=== PATIENT | male | born 1980 | race African-American/Black ===

== ENCOUNTER 2016-06-02 23:10 | Emergency (ER) ==
[2016-06-02] MEDS ORDERED: PHENERGAN IV ONE (23:52)
[2016-06-02] MEDS ORDERED: SODIUM CHLORIDE 0.9% INJ ONE (23:52)
[2016-06-02] MEDS ORDERED: DILAUDID IV ONE (23:52)
--- NOTE | 2016-06-03 00:37 | PROVIDER DOCUMENTATION ---
HPI-Musculoskeletal Pain/Inj - GENERAL Source: patient - HX OF PRESENT ILLNESS-MUSKULOSKELTAL Quality of Pain: reports: aching Severity in ED: moderate, severe Onset/Duration: this evening Timing: still present Any recent injury?: No Locality of Occurance: Home Similar Symptoms Previously?: Yes - UPPER EXTREMITY PAIN/INJURY Extremities Pain Location: shoulder: right Context / Method of Injury: reports: other (dislocation) <Ruba Gould - Last Filed: 06/03/16 00:33> <Taras Tirvedi - Last Filed: 06/03/16 02:00> - GENERAL Chief Complaint: Shoulder Injury Stated Complaint: RT SHOULDER DISLOCATED Time Seen by Provider: 06/02/16 23:24 - HX OF PRESENT ILLNESS-MUSKULOSKELTAL Nature of Presenting Problem: 35 Y/O M presents to ED with extremity pain. Pt states that he was at home this evening when he dislocated his rt shoulder , states he was reaching for his phone and the shoulder just came out. Pt has a reoccurring hx of shoulder dislocation. (Ruba Gould) Review of Systems - Adult - REVIEW OF SYSTEMS - ADULT Constitutional: denies: chills, fever Eyes: reports: no symptoms reported Ears, Nose, Mouth & Throat: reports: no symptoms reported Cardiovascular: reports: no symptoms reported Respiratory: reports: no symptoms reported Gastrointestinal: reports: no symptoms reported Genitourinary: reports: no symptoms reported Musculoskeletal: reports: muscle aches, other (shoulder dislocation) Integumentary: reports: no symptoms reported Neurological: reports: no symptoms reported Psychiatric: reports: no symptoms reported Endocrine: reports: no symptoms reported Hematologic/Lymphatic: reports: no symptoms reported Allergic/Immunologic: reports: no symptoms reported All Other Systems: Reviewed and Negative <Ruba Gould - Last Filed: 06/03/16 00:33> Past History - Adult - PAST MEDICAL HISTORY-ADULT Review of Records: reports: Old Records Reviewed, Nursing Assessment Review, Medications Reviewed, Social history reviewed & non-contributory. Major Childhood Illnesses: reports: denies history Cardiovascular: reports: CHF, HTN (non compliant) Respiratory: reports: asthma Musculoskeletal: reports: other (multiple shoulder dislocations) Additional History: multiple visits to the ER for HTN and Shoulder Dislocations - PRIOR SURGERIES/PROCEDURES Surgical/Procedure History: reports: orthopedic (extremity) - IMMUNIZATION STATUS Childhood Immunizations: See Nurse Assessment Flu Vaccine: See Nurse Assessment - FAMILY HISTORY Family History: reviewed, not pertinent - SOCIAL HISTORY Smoking: cigarettes, less than 1 pack/day Living Situation: family <BryannaRuba - Last Filed: 06/03/16 00:33> Physical Exam-Injury Related - Physical Exam-Injury Related Initial Vital Signs Reviewed: Yes General Appearance: appears well, alert, no apparent distress Eyes: PERRL/EOMI, pink conjunctivae, fundi clear, no AV nicking Head, Ears, Nose, Mouth & Throat: normocephalic/atraumatic, moist mucous membranes, TMs normal, pharynx normal, dental decay Neck: non-tender, full range of motion, supple, normal inspection Respiratory: chest non-tender, lungs clear, normal breath sounds Cardiovascular: normal peripheral pulses, regular rate, rhythm Abdominal Exam: normal bowel sounds, non tender, soft Lymphatic: no adenopathy Back Exam: normal inspection, no CVA tenderness, no vertebral tenderness Extremity: other (rt shoulder dislocation) Integumentary: normal color, warm/dry, blanching Neurologic: phlebotomy program coordinator II-XII nml as tested Psych/Mental Status: normal mood/affect, normal thought content, normal thought process, oriented x 3 - Gl[place]ow Coma Score Best Eye Response ([place]): (4) open spontaneously Best Verbal Response ([place]): (5) oriented Best Motor Response ([place]): (6) obeys commands [place] Total: 15 <Ruba Gould - Last Filed: 06/03/16 00:33> Progress - REASSESSMENT Reassessment #1 Time Reassessed: 01:11 (Pt shoulder spontaneously reduced. Pt now has full ROM to his shoulder. ) Reassessment #2 Time Reassessed: 01:59 (Gojimo states there has been a computer error that has deleted the post reduction shoulder x-ray. I re-ordered the x-ray.) - XRAY 1 XRAY: Right XRAY Study: Shoulder Impression: Abnormal (anterior dislocation) <Taras Trivedi - Last Filed: 06/03/16 02:00> Departure <Ruba Gould - Last Filed: 06/03/16 00:33> - Departure Time of Disposition Order: 01:12 Certified Medical Emergency: Emergent <Taras Trivedi - Last Filed: 06/03/16 02:00> - Departure DIAGNOSIS: Shoulder dislocation, recurrent Qualifiers: Laterality: right Qualified Code(s): M24.411 - Recurrent dislocation, right shoulder Disposition: HOME 01 Condition: Stable Additional Instructions: ED Follow Up Instructions: You have been treated by a care provider in the Emergency Department. These instructions are being provided to you so you can have an understanding of how to care for yourself upon discharge. Upon discharge from the Emergency Department, you are responsible for making arrangements for follow-up care by a physician of your choice. Take all prescribed medications as directed. Return to the Emergency Department immediately for any new or worsening symptoms. You may call the Physician Referral phone number at [phone] to obtain a list of Physicians who are taking new patients. Prescriptions: Ibuprofen [Motrin] 800 mg PO Q8H PRN PRN #20 tablet PRN Reason: inflammation Omeprazole [Prilosec] 20 mg PO DAILY@0700 #20 capsule Tramadol [Ultram] 50 mg PO Q8HR #10 tablet Referrals: Jimenez Ann MD [STAFF PHYSICIAN] - Instructions: Shoulder Dislocation, Aauo-up-Edrx Attestation - Scribe Verification/Attestation Scribe:: Ruba Gould Acting as Scribe for:: John Braun Scribe documention review:: This chart was documented by a scribe and accurately reflects the service the provider performed and the decisions made by the provider. - Physician/ GARO Attestation Patient care was provided by Advanced Practice Provider:: Yes Advanced Practice Provider:: Taras Trivedi Advanced Practice Provider documentation review:: The Mid-level provider documentation, treatment plan and medical decision making was reviewed by the physician who agrees with all treatment and medical decision making by the MLP. <Ruba Gould - Last Filed: 06/03/16 00:33> - Physician/ GARO Attestation Patient care was provided by Advanced Practice Provider:: Yes Advanced Practice Provider:: Taras Trivedi Advanced Practice Provider documentation review:: The Mid-level provider documentation, treatment plan and medical decision making was reviewed by the physician who agrees with all treatment and medical decision making by the MLP. <Taras Trivedi - Last Filed: 06/03/16 02:00> Physician Attestation
[2016-06-03 01:35] VITALS: BP 153/108
--- NOTE | 2016-06-03 09:20 | Diag Imaging Result Document ---
PROCEDURE NAME: TRAUMA SHOULDER RIGHT - 06/02/2016 PLAIN RADIOGRAPH OF THE RIGHT SHOULDER, 2 VIEWS: COMPARISON: 05/12/2016. FINDINGS: There is an anterior dislocation of the right humeral head. No definite fracture can be identified on this study. Surrounding soft tissues are grossly unremarkable. The AC joint is unremarkable. IMPRESSION: Anterior shoulder dislocation.
--- NOTE | 2016-06-03 09:22 | Diag Imaging Result Document ---
PROCEDURE NAME: SHOULDER 1 VIEW RIGHT - 06/03/2016 SINGLE AP RADIOGRAPH OF THE RIGHT SHOULDER: COMPARISON: 06/03/2016. FINDINGS: The right humeral head is now in anatomic position status post reduction. No discrete fracture can be identified. IMPRESSION: Interval reduction of the dislocated right shoulder, which is now in anatomic position.
== END 2016-06-03 02:12 | disposition home or self-care (01) ==
LOC: ED 23:10
DX: M24.411 Recurrent dislocation, right shoulder (principal); M25.511 Pain in right shoulder; M79.1 Myalgia; I50.9 Heart failure, unspecified; I10 Essential (primary) hypertension; F17.210 Nicotine dependence, cigarettes, uncomplicated; Z79.899 Other long term (current) drug therapy
CPT/HCPCS: J1170; J2550

== ENCOUNTER 2019-02-28 09:32 | Inpatient (IN) ==
[2019-02-28 10:28] LABS: BASO# 0.02 X1000 (0.0-0.2); BASO% 0.3 % (0.0-0.8); EOS# 0.02 X1000 (0.0-0.7); EOS% 0.3 % (0.0-10.0); HEMATOCRIT 36.5 % (42.0-52.0); HEMOGLOBIN 11.5 g/dL (14.0-18.0); IMM GRAN# 0.01 X1000 (0.0-0.04); IMM GRAN% 0.1 % (0.0-0.5); LYMPH% 25.2 % (20.5-51.1); MCH 26.4 PG (27-31); MCHC 31.5 g/dL (33-37); MCV 83.9 FL (81-99); MONO% 7.5 % (1.7-9.3); MPV 10.1 FL (7.4-10.4); NEUT% 66.6 % (42.2-75.2); PLT 331 X1000 (130-400); RBC 4.35 XMIL (4.7-6.1); RDW 15.2 % (11.5-14.5); WBC 7.95 X1000 (4.8-10.8)
[2019-02-28 10:47] LABS: PROTIME 13.7 Seconds (11.0-16.0)
[2019-02-28 10:48] LABS: PTT 26.8 Seconds (22.3-41.8)
[2019-02-28] MEDS: LASIX IV SCH ×2 (11:08→22:25)
[2019-02-28 11:18] LABS: ALBUMIN 4.3 g/dL (3.5-5.0); ALKALINE PHOSPHATASE 108 U/L (32-122); BUN 15 mg/dL (8-22); CALCIUM 9.1 mg/dL (8.8-10.2); CHLORIDE 104 mmol/L (98-107); COSMO 287; CREATININE 1.2 mg/dL (0.7-1.2); ESTIMATED GFR > 60; GLUCOSE 111 mg/dL (70-104); GOT 23 U/L (10-34); GPT 11 U/L (10-44); POTASSIUM 4.1 mmol/L (3.5-5.1); SODIUM 143 mmol/L (136-145)
--- NOTE | 2019-02-28 11:18 | PROVIDER DOCUMENTATION ---
This chart was entered by Taylor Velázquez Scribe, acting as scribe for John Sampson MD. HPI-Respiratory General - General Chief Complaint: Shortness of Breath Stated Complaint: SOB Time Seen by Provider: 02/28/19 09:52 Source: patient Allergies/Adverse Reactions: Patient Allergies Allergy/AdvReac Type Severity Reaction Status Date / Time hydrocodone AdvReac NAUSEA/VOMI Verified 02/28/19 10:31 TING lactase [From Dairy Aid] AdvReac NAUSEA/VOMI Verified 02/28/19 10:31 TING lactose AdvReac NAUSEA/VOMI Verified 02/28/19 10:31 TING Home Medications: Home Medication List Medication Instructions Recorded Confirmed Last Taken Type Lisinopril/Hydrochlorothiazide 1 each PO DAILY 04/29/15 02/28/19 02/27/19 History [Lisinopril-Hctz 20-12.5 mg Tab] Furosemide [Lasix] 40 mg PO DAILY 05/12/16 02/28/19 02/27/19 History Losartan Potassium 100 mg PO DAILY #30 tablet 08/05/16 02/28/19 02/27/19 Rx Albuterol [Albuterol Neb] 2.5 mg INH PRN PRN 10/12/17 02/28/19 02/27/19 History Metoprolol Succinate 50 mg PO BID 10/12/17 02/28/19 02/27/19 History Pantoprazole Sodium 40 mg PO DAILY 10/12/17 02/28/19 02/27/19 History Potassium Chloride 20 meq PO DAILY 10/12/17 02/28/19 02/27/19 History Spironolactone 25 mg PO DAILY 10/12/17 02/28/19 02/27/19 History Metformin [Glucophage] 1 tab PO DAILY 10/16/17 02/28/19 02/27/19 History Citalopram Hydrobromide 1 tab PO DAILY 09/27/18 02/28/19 02/27/19 History [Citalopram HBr] Sacubitril/Valsartan [Entresto 24 1 tab PO BID 09/27/18 02/28/19 02/27/19 History mg-26 mg Tablet] - History of Present Illness-Resp Nature of Presenting Problem: Patient is a 38 year old male who presents with shortness of breath. History of CHF. Patient left AMA this morning from ED. Denies chest pain. Quality of Pain: reports: none Severity in ED: reports: mild Onset/Duration: reports: gradual Timing: reports: still present Cough Quality/Degree: reports: no cough Current Respiratory Medication Therapy: Initiated see nurses note Modifying Factors: improves with: nothing Associated Symptoms: reports: shortness of breath Similar Symptoms Previously?: Yes Recently seen or treated by another doctor?: Yes Review of Systems - Adult - REVIEW OF SYSTEMS - ADULT Constitutional: reports: no symptoms reported Eyes: reports: no symptoms reported Ears, Nose, Mouth & Throat: reports: no symptoms reported Cardiovascular: reports: no symptoms reported. denies: chest pain, irregular heart rate, palpitations Respiratory: reports: see HPI, shortness of breath. denies: cough, wheezing Gastrointestinal: reports: abdominal pain (generalized), constipation. denies: nausea, vomiting Genitourinary: reports: no symptoms reported Musculoskeletal: reports: no symptoms reported Integumentary: reports: no symptoms reported Neurological: reports: no symptoms reported Psychiatric: reports: no symptoms reported Endocrine: reports: no symptoms reported Hematologic/Lymphatic: reports: no symptoms reported Allergic/Immunologic: reports: no symptoms reported All Other Systems: Reviewed and Negative Past History - Adult - PAST MEDICAL HISTORY-ADULT Review of Records: reports: Old Records Reviewed, Nursing Assessment Review, Medications Reviewed, Social history reviewed & non-contributory. Major Childhood Illnesses: reports: denies history Cardiovascular: reports: CHF, HTN (non compliant), pacemaker Respiratory: reports: asthma Gastrointestinal: reports: denies history Obstetrical/Gynecological: reports: denies history Genitourinary: reports: denies history Musculoskeletal: reports: other (multiple shoulder dislocations) Neurological: reports: denies history Endocrine/Immune: reports: Diabetes Other Conditions: reports: denies history Additional History: multiple visits to the ER for HTN and Shoulder Dislocations - PRIOR SURGERIES/PROCEDURES Surgical/Procedure History: reports: orthopedic (extremity) - IMMUNIZATION STATUS Childhood Immunizations: See Nurse Assessment Flu Vaccine: See Nurse Assessment - FAMILY HISTORY Family History: reviewed, not pertinent - SOCIAL HISTORY Smoking: cigarettes (former) Substance Use: denies Physical Exam-General - PHYSICAL EXAM-ADULT Initial Vital Signs Reviewed: Yes - CONSTITUTIONAL General Appearance: alert, no apparent distress. negative: lethargic - HEAD, EARS, NOSE, MOUTH & THROAT HENMT: normocephalic/atraumatic, moist mucous membranes. negative: angioedema - RESPIRATORY Respiratory: chest non-tender, rales (bilateral). negative: crackles - CARDIOVASCULAR Cardiovascular: normal peripheral pulses, regular rate, rhythm, other (surgical wound to left anterior chest wall.). negative: tachycardia - GASTROINTESTINAL (ABDOMEN) Abdominal Exam: normal bowel sounds, non tender, soft. negative: guarding - MUSCULOSKELETAL Extremity: normal inspection. negative: deformity, erythema - SKIN Integumentary: normal color, normal turgor, warm/dry, other (surgical wound to left anterior chest wall.). negative: diaphoresis - NEUROLOGIC Neurologic: grossly normal. negative: aphasia, facial droop - PSYCHIATRIC Psych/Mental Status: normal mood/affect, oriented x 3. negative: anxious - HEART Score HEART Score: History: Slightly Suspicious HEART Score: ECG: Non-Specific Repolarization Disturbance/LBBB/PM HEART Score: Age: < or = 45 Years HEART Score: Risk Factors for Atherosclerotic Disease: 1 or 2 Risk Factors HEART Score: Troponin: < or = Normal Limit Total HEART Score:: 2 Progress - PLAN OF CARE/RESULTS Progress/Plan/Lab Results: Vital Signs - 8 hr 02/28/19 09:36 02/28/19 09:44 Temperature 97.5 F L 98.2 F Pulse Rate 104 H 105 H Respiratory Rate 20 32 H Blood Pressure 148/116 167/136 O2 Sat by Pulse Oximetry 97 95 Laboratory Results - last 24 hr 02/28/19 02/28/19 02/28/19 10:11 10:11 10:11 WBC 7.95 RBC 4.35 L Hgb 11.5 L Hct 36.5 L MCV 83.9 MCH 26.4 L MCHC 31.5 L RDW Std Deviation 15.2 H Plt Count 331 MPV 10.1 Immature Gran % (Auto) 0.1 Neut % (Auto) 66.6 Lymph % (Auto) 25.2 [place] % (Auto) 7.5 Eos % (Auto) 0.3 Baso % (Auto) 0.3 Immature Gran # (Auto) 0.01 Neut # (Auto) 5.30 Lymph # (Auto) 2.00 [place] # (Auto) 0.60 H Eos # (Auto) 0.02 Baso # (Auto) 0.02 PT 13.7 INR 1.00 PTT (Actin FS) 26.8 Troponin T < 0.010 Orders Category Date Time Status Admit - [facility] Routine AdmDCTranf 02/28/19 10:52 Active Cardiac Monitoring DIRECTED Care 02/28/19 09:44 Active Nursing- MD Consult Request ROUTINE Care 02/28/19 10:52 Active Oxygen Therapy- ED Nursing DIRECTED Care 02/28/19 09:44 Active Saline Loc NOW Care 02/28/19 09:44 Active Physician/Provider Consults Routine Cons 02/28/19 10:52 Ordered CBC WITH ELECTRONIC DIFF [HEME] Stat Lab 02/28/19 10:11 Completed CK PROFILE [SP CHEM] Stat Lab 02/28/19 10:11 Received COMPREHENSIVE METABOLIC PANEL [CHEM] Stat Lab 02/28/19 10:11 Received PRO B-NATRIURETIC PEPTIDE Stat Lab 02/28/19 10:11 Received PROTIME WITH INR [COAG] Stat Lab 02/28/19 10:11 Completed PTT [COAG] Stat Lab 02/28/19 10:11 Completed RENAL PROFILE [CHEM] DAILY Lab 03/01/19 06:00 Ordered RENAL PROFILE [CHEM] DAILY Lab 03/02/19 06:00 Ordered RENAL PROFILE [CHEM] DAILY Lab 03/03/19 06:00 Ordered TROPONIN T Stat Lab 02/28/19 10:11 Completed URINE DRUG SCREEN PL Stat Lab 02/28/19 10:50 Received Furosemide [Lasix] Med 02/28/19 11:00 Active 40 mg IV Q12H CP/SOB/Palp >45 yrs of Age Stat Oth 02/28/19 09:44 Ordered EKG [EKG] Stat Ther 02/28/19 09:44 Ordered Echo Spec/Color Doppler Routine Ther 02/28/19 10:52 Ordered Transfer/Admit Order [TRANSFER] Routine Transfer 02/28/19 10:50 Ordered Result Diagrams: 02/28/19 10:11 - EKG 1 Time of EKG reading by physician:: 10:26 EKG Read and Signed by:: John Sampson EKG Interpretation (*Must complete 3 of following elements*): Abnormal Rate: 103 Rhythm: sinus tachycardia with premature atrial complexes Arnett: left QRS: LVH (with QRS widening and repolarization abnormality.) CT Interval: normal Comments: possible left atrial enlargement - CONSULTS/PCP/HOSPITALIST Notification #1 *Consult/PCP/Hospitalist*: Dr. Arroyo Time Discussed: 10:54 Reason/Comments: Dr. Sampson consulted with Dr. Arroyo about patient. Consult Disposition: Will see in ED, Admit Departure - Departure Date of Disposition Decision: 02/28/19 Time of Disposition Decision: 10:54 DIAGNOSIS: SOB (shortness of breath), Abdominal pain Congestive heart failure (CHF) Qualifiers: Heart failure type: unspecified Heart failure chronicity: chronic Qualified Code(s): I50.9 - Heart failure, unspecified Constipation Qualifiers: Constipation type: drug induced constipation Qualified Code(s): K59.03 - Drug induced constipation Disposition: ADMITTED INPATIENT 09 Certified Medical Emergency: Emergent Condition: Stable Referrals and Follow-Ups: Wanda Chopra CRNP [Primary Care Provider] - - Critical Care Note This patient required my direct & personal management of CC.: No Attestation - Physician/ GARO Attestation The physician spent face to face time with patient:: Yes Advanced Practice Provider documentation review:: Supervising physician onsite and consulted in the evaluation and care of this patient. The physician did have a face to face encounter with the patient. This chart was documented by the indicated scribe, (Taylor Velázquez Scribe) and accurately reflects the services I performed and decisions made by me, John Sampson MD, as attested by the provider's signature.
[2019-02-28 11:21] LABS: AGAP 16
[2019-02-28 11:22] LABS: TOTAL PROTEIN 7.1 g/dL (6.3-8.3)
[2019-02-28 11:35] LABS: CK PROFILE 144 U/L (24-204); TCO2 21 mmol/L (25-35)
[2019-02-28 11:38] LABS: UR AMPHETAMINES QUAL NONE DETECTED (NONE DETECT); UR BARBITUATES QUAL NONE DETECTED (NONE DETECT); UR BENZODIAZEPIN QUAL NONE DETECTED (NONE DETECT); UR CANNABINOIDS QUAL PRESUMPTIVE POSITIVE (NONE DETECT); UR COCAINE QUAL NONE DETECTED (NONE DETECT); UR METHADONE QUAL NONE DETECTED (NONE DETECT); UR METHAMPHETAMINE QUAL NONE DETECTED (NONE DETECT); UR OPIATES QUAL NONE DETECTED (NONE DETECT); UR OXYCODONE QUAL NONE DETECTED (NONE DETECT); UR PCP QUAL NONE DETECTED (NONE DETECT); UR PROPOXYPHENE QUAL NONE DETECTED (NONE DETECT); UR TCA QUAL NONE DETECTED (NONE DETECT)
[2019-02-28] MEDS ORDERED: TYLENOL PO PRN (12:33)
[2019-02-28] MEDS ORDERED: ZOFRAN IV PRN (12:33)
[2019-02-28] MEDS ORDERED: BUDESONIDE INH PRN (13:32)
[2019-02-28] MEDS ORDERED: PERCOCET-5 PO PRN (13:32)
[2019-02-28] MEDS ORDERED: SORBITOL PO ONE (14:20)
[2019-02-28] MEDS ORDERED: DULCOLAX PR ONE (14:20)
[2019-02-28] MEDS ORDERED: PNEUMOVAX 23 IM ONE (14:53)
[2019-02-28] MEDS: ALBUTEROL NEB INH PRN ×2 (15:40→20:28)
[2019-02-28] MEDS: HUMULIN R (PARKWAY) SUBQ SCH (16:47)
--- NOTE | 2019-02-28 17:36 | EKG Report ---
Test Performed on : 02/28/2019 10:26:48 AM Test Reason : sob Blood Pressure : / mmHG Vent. Rate : 103 BPM Atrial Rate : 103 BPM P-R Int : 180 ms QRS Dur : 118 ms QT Int : 388 ms P-R-T Axes : 052 -47 104 degrees QTc Int : 508 ms Sinus tachycardia. with premature atrial complexes. Possible Left atrial enlargement Left axis deviation Left ventricular hypertrophy with QRS widening and repolarization abnormality Abnormal ECG When compared with ECG of 28-FEB-2019 01:45, (Unconfirmed) premature ventricular complexes. are no longer present premature atrial complexes. are now present Unconfirmed Result
--- NOTE | 2019-02-28 18:36 | ECHO REPORT ---
ORDER DATE: 02/28/2019 INDICATION: CHF exacerbation. REQUESTING PHYSICIAN: Hospitalist. M-MODE MEASUREMENTS: Left ventricle end diastole: 6.8. Left ventricle end systole: 6.3. Posterior wall: 1.5. Interventricular septum: 1.5. Left atrium: 4.7. Aortic diameter: 2.6. SUMMARY OF 2-DIMENSIONAL IMAGIN. The left ventricular chamber is markedly dilated. Global systolic function is severely impaired, estimated to be in the range of 20% to 25% by computer tracing. 2. The left atrium is markedly dilated. 3. The mitral valve shows a moderately severe to severe degree of regurgitation. 4. Pulsed wave Doppler of mitral inflow shows fusion of the E and A waves. Diastolic function cannot be evaluated. Left atrial pressure is probably markedly elevated. 5. The tricuspid valve shows a mild to moderate degree of regurgitation. The inferior vena cava is enlarged. Pulmonary pressure is estimated at 76 mmHg. The right atrium and right ventricle appear to be mildly to moderately enlarged. 6. The aortic valve has 3 cusps. Color flow mapping unremarkable. 7. The pulmonic valve looks grossly unremarkable. 8. There is no pericardial effusion, no mass, and no thrombus. Clinical correlation recommended. cc: MD Brad Hernandez MD
--- NOTE | 2019-02-28 21:15 | HISTORY AND PHYSICAL ---
CHIEF COMPLAINT: Abdominal pain with constipation, and shortness of breath with fluid weight gain. HISTORY OF PRESENT ILLNESS: Mr. Harry Joshi is a 38-year-old male. He states for at least a week he has been having increased shortness of breath, fluid buildup in his lungs and constipation. He claims he has not had a bowel movement in a week. Of note, around a week ago or sometime last week Dr. Cesar in [place] put a defibrillator in. Also history of diabetes and hypertension. He did originally come in through the night or earlier this morning but left AMA and came back. Because of that a urine drug screen was performed. The only thing that was positive was cannabinoids, but he admits to smoking marijuana twice a day. We will admit him, treat him for his congestive heart failure and his constipation. He did state that he was having some chest pain with it. It did not really radiate except for maybe to his stomach. He would get a little sweaty and nauseated, and he complained of some muscle pain in the back of his calf, but there is no swelling. PAST MEDICAL HISTORY: 1. Diabetes mellitus type 2. 2. Systolic congestive heart failure. 3. Hypertension. 4. Constipation. 5. Chronic pain. PAST SURGICAL HISTORY: Defibrillator put in last week, in [place]. SOCIAL HISTORY: He states he quit smoking 2 months ago, but prior to that he smoked less than a half pack per day since the age of 16. He denies alcohol. He smokes marijuana twice a day. He is on disability. His girlfriend is at the bedside. FAMILY HISTORY: Mother from an unknown cancer, and his father from heart attack in his 50s. ALLERGIES: Hydrocodone, lactase and lactose. HOME MEDICATIONS: 1. Albuterol nebulizers. 2. Amlodipine 5 mg p.o. daily. 3. Citalopram 40 mg p.o. daily. 4. Entresto one tablet p.o. twice daily. 5. Metformin 500 mg p.o. daily. 6. Lasix 40 mg p.o. daily. 7. Hydrochlorothiazide/lisinopril 1 tablet p.o. daily. 8. Metoprolol 50 mg p.o. twice daily. 9. Montelukast 10 mg p.o. daily. 10. Percocet 1 tablet p.o. every 6 hours p.r.n. 11. Protonix 40 mg p.o. daily. 12. Potassium chloride 20 mEq p.o. daily. 13. Budesonide 2 puffs inhaled every 4 hours. 14. Spironolactone 25 mg p.o. daily. 15. Venlafaxine 50 mg p.o. daily. 16. Losartan potassium 100 mg p.o. daily. REVIEW OF SYSTEMS: Fourteen-point review of systems are complete and all are negative except for those mentioned in the above HPI. PHYSICAL EXAMINATION: VITAL SIGNS: Temperature 97.4 degrees, heart rate 103, respiratory rate 20, blood pressure 140/100, O2 saturation 100% on room air. GENERAL: Five feet 8 inches tall, 155 pounds. He states he weighed 161 when he came in and he usually weighs 150, and he is down to 155. Mr. Harry Joshi is a 38-year-old male in no acute distress. He is able to answer questions appropriately. HEENT: Atraumatic, normocephalic. Pupils equal, round and reactive to light. Extraocular movements intact. Mucous membranes are moist. NECK: Trachea midline. CARDIOVASCULAR: S1, S2. Regular rate and rhythm. No rubs, gallops or murmurs. There is no lower extremity edema. Dorsalis and radial pulses +2. Negative JVD or carotid bruits. PULMONARY: Clear to auscultation. Bilateral breath sounds. No accessory muscle use or work of breathing noted. GASTROINTESTINAL: Soft. He is a little tender. Nondistended. Positive bowel sounds x4. EXTREMITIES: Moves all extremities equally. Full range of motion. NEUROLOGIC: Alert and oriented x3. Follows commands. Sensory is intact. SKIN: Warm, dry, intact. LABORATORY DATA: White blood cells 7000, hemoglobin 11, hematocrit 36, platelet count 331,000. INR is 1.00, PTT is 26.8. Sodium 143, potassium 4.1, BUN 15, creatinine 1.2, glucose 111, calcium 9.1, bilirubin is 1.30, AST 23, ALT 11. CK 144, troponin less than 0.01. ProBNP 9035. Albumin 4.3. Urine drug screen positive for cannabinoids. DIAGNOSTIC DATA: He had an abdominopelvic CT: No pulmonary emboli; marked cardiomegaly with pulmonary edema and a right pleural effusion. EKG: Sinus tachycardia, PVCs, rate 107, QTc 504. ASSESSMENT AND PLAN: 1. Complaints of chest pains related to congestive heart failure. 2. [id number] systolic congestive heart failure. He is on intravenous Lasix and continued his Entresto. He apparently started out at 161 pounds. He is down to 155, and his normal weight is 150. 3. Complaints of constipation. No bowel movement for a week. He is actually requesting medication to help him have a bowel movement. He feels like it is adding to his shortness of breath, so we will do sorbitol suppository, bisacodyl suppository and Kristan- Colace twice a day. 4. Hypertension. Continue home medications. 5. Diabetes mellitus type 2. We will do pattern blood glucoses and sliding scale insulin. 6. Tobacco abuse. Cessation discussed. Dictated by DAVY Marina for Brad Hutson MD Addendum: Patient seen and examined by myself. Agree with DAVY note. It reflects my assessment and plan. Patient is being admitted to hospital for acute systolic congestive heart failure so will start him on Lasix IV, monitor BPM and check an chest X ray in 2 days. He is also constipated because he is taking Percocet. Will provide stool softeners. cc: DAVY Marina MD [facility]
[2019-02-28] MEDS: TOPROL XL PO SCH (22:24)
[2019-02-28] MEDS: PERICOLACE PO SCH (22:24)
[2019-02-28] MEDS: ENTRESTO 24 MG-26 MG TABLET PO SCH (22:24)
[2019-03-01] MEDS: HUMULIN R (PARKWAY) SUBQ SCH ×5 (06:14→23:58)
[2019-03-01 06:21] LABS: BASO# 0.02 X1000 (0.0-0.2); BASO% 0.3 % (0.0-0.8); EOS# 0.12 X1000 (0.0-0.7); EOS% 1.6 % (0.0-10.0); HEMATOCRIT 38.4 % (42.0-52.0); HEMOGLOBIN 12.3 g/dL (14.0-18.0); IMM GRAN# 0.01 X1000 (0.0-0.04); IMM GRAN% 0.1 % (0.0-0.5); LYMPH# 1.83 X1000 (1.2-3.4); LYMPH% 24.4 % (20.5-51.1); MCH 26.7 PG (27-31); MCV 83.5 FL (81-99); MONO# 0.79 X1000 (0.11-0.59); MONO% 10.5 % (1.7-9.3); MPV 9.8 FL (7.4-10.4); NEUT# 4.74 X1000 (1.4-6.5); NEUT% 63.1 % (42.2-75.2); PLT 346 X1000 (130-400); RDW 14.9 % (11.5-14.5); WBC 7.51 X1000 (4.8-10.8)
[2019-03-01 06:37] LABS: AGAP 14; ALKALINE PHOSPHATASE 112 U/L (32-122); BUN 18 mg/dL (8-22); CHLORIDE 98 mmol/L (98-107); COSMO 284; CREATININE 1.3 mg/dL (0.7-1.2); ESTIMATED GFR > 60; GLUCOSE 118 mg/dL (70-104); GOT 19 U/L (10-34); GPT 13 U/L (10-44); PHOSPHORUS 3.2 mg/dL (2.7-4.5); POTASSIUM 2.8 mmol/L (3.5-5.1); SODIUM 141 mmol/L (136-145); TCO2 29 mmol/L (25-35); TOTAL PROTEIN 7.2 g/dL (6.3-8.3)
[2019-03-01] MEDS: PROTONIX PO SCH ×2 (06:50→08:19)
--- NOTE | 2019-03-01 07:37 | Diag Imaging Result Doc PS360 ---
EXAM: CHEST-2 VIEWS HISTORY: sob TECHNIQUE: Two views COMPARISON: None. FINDINGS: The lungs are well expanded. The heart is enlarged. The vessels are not distended. There are no infiltrates. No pleural effusions. IMPRESSION: Cardiomegaly Electronically signed by Joseph Rosario 03/01/2019 7:35 AM
[2019-03-01] MEDS: ALBUTEROL NEB INH PRN ×3 (08:05→19:59)
[2019-03-01] MEDS: ENTRESTO 24 MG-26 MG TABLET PO SCH ×2 (08:18→20:38)
[2019-03-01] MEDS: EFFEXOR PO SCH (08:18)
[2019-03-01] MEDS: NORVASC PO SCH (08:19)
[2019-03-01] MEDS: TOPROL XL PO SCH ×2 (08:19→20:38)
[2019-03-01] MEDS: SINGULAIR PO SCH (08:19)
[2019-03-01] MEDS: ALDACTONE PO SCH (08:19)
[2019-03-01] MEDS: CELEXA PO SCH (08:19)
[2019-03-01] MEDS: PERICOLACE PO SCH ×2 (08:39→20:38)
[2019-03-01] MEDS ORDERED: POTASSIUM CHLORIDE 60 MEQ in NS 500 ML IV ONE ×2 (08:44→09:00)
[2019-03-01] MEDS ORDERED: KLOR-CON PO SCH (09:00)
[2019-03-01] MEDS: KLOR-CON PO SCH (10:51)
[2019-03-01] MEDS: LASIX IV SCH ×2 (10:51→23:58)
--- NOTE | 2019-03-01 13:58 | PROGRESS NOTE ---
DATE: 03/01/2019 SUBJECTIVE: Patient reports breathing much better. Denies any chest pressure or palpitations. OBJECTIVE: Vital Signs: Temperature 97.7 degrees, heart rate 70, respiratory rate 18, blood pressure 141/102, O2 saturation 100% on room air. General Examination: This is a 38-year-old male, lying in bed, in no acute distress. Cardiovascular: S1, S2 heard. No murmurs, gallops, or rubs. Regular rate and rhythm. Respiratory: Clear bilaterally to auscultation. No work of breathing or using accessory muscles. Abdomen: Soft, nontender to palpation. Bowel sounds present. No organomegaly. Extremities: No clubbing, cyanosis, or edema. Peripheral pulses present in both legs. Neurological: Patient alert and oriented x3. Moves 4 extremities. LABORATORY DATA: White cell count 7.51, hemoglobin 12.3, hematocrit. 38.4, platelets 346,000, potassium 2.8, creatinine 1.3. ASSESSMENT AND PLAN: 1. Systolic congestive heart failure exacerbation. The patient reports feeling better. The patient is currently receiving Lasix 40 mg IV q. 12 hours. His potassium is low so we are going to replenish. We will continue to monitor this patient closely. Clinically this patient is not short of breath at all. We will check an x-ray tomorrow. We will go from there. 2. Constipation, most likely related to opiate use. We will continue with providing stool softeners. 3. Hypertension. Blood pressure is under control. We will continue with same management. 4. Diabetes mellitus type 2. We will continue with sliding scale insulin. Accu-Chek before meals and also at bedtime. 5. Tobacco abuse. Discussion about quitting smoking. 6. Disposition. We will continue with current management. Will replenish potassium. If the patient feels better and labs are okay, we will release him tomorrow. cc: Brad Hutson MD
[2019-03-01] MEDS: PULMICORT INH SCH (19:59)
[2019-03-01] MEDS ORDERED: BUDESONIDE INH SCH (21:00)
[2019-03-02] MEDS: HUMULIN R (PARKWAY) SUBQ SCH (06:22)
[2019-03-02] MEDS: PROTONIX PO SCH ×2 (06:23→09:45)
[2019-03-02 06:41] LABS: BASO# 0.03 X1000 (0.0-0.2); BASO% 0.5 % (0.0-0.8); EOS# 0.08 X1000 (0.0-0.7); EOS% 1.3 % (0.0-10.0); HEMATOCRIT 39.4 % (42.0-52.0); HEMOGLOBIN 12.3 g/dL (14.0-18.0); IMM GRAN# 0.01 X1000 (0.0-0.04); IMM GRAN% 0.2 % (0.0-0.5); LYMPH# 1.58 X1000 (1.2-3.4); LYMPH% 25.3 % (20.5-51.1); MCH 26.2 PG (27-31); MCHC 31.2 g/dL (33-37); MONO# 0.62 X1000 (0.11-0.59); MONO% 9.9 % (1.7-9.3); MPV 9.9 FL (7.4-10.4); NEUT# 3.93 X1000 (1.4-6.5); NEUT% 62.8 % (42.2-75.2); PLT 387 X1000 (130-400); RBC 4.69 XMIL (4.7-6.1); RDW 15.1 % (11.5-14.5); WBC 6.25 X1000 (4.8-10.8)
[2019-03-02 07:25] LABS: ALBUMIN 3.7 g/dL (3.5-5.0); CALCIUM 9.1 mg/dL (8.8-10.2); CREATININE 1.4 mg/dL (0.7-1.2); MAGNESIUM 1.8 mg/dL (1.5-2.7); PHOSPHORUS 4.3 mg/dL (2.7-4.5); POTASSIUM 3.3 mmol/L (3.5-5.1); TOTAL PROTEIN 6.7 g/dL (6.3-8.3)
[2019-03-02 07:41] VITALS: BP 128/93
[2019-03-02] MEDS: ALBUTEROL NEB INH PRN (07:46)
[2019-03-02] MEDS: PULMICORT INH SCH (07:46)
[2019-03-02] MEDS: SINGULAIR PO SCH (09:44)
[2019-03-02] MEDS: ENTRESTO 24 MG-26 MG TABLET PO SCH (09:44)
[2019-03-02] MEDS: PERICOLACE PO SCH (09:45)
[2019-03-02] MEDS: TOPROL XL PO SCH (09:45)
[2019-03-02] MEDS: KLOR-CON PO SCH (09:45)
[2019-03-02] MEDS: CELEXA PO SCH (09:45)
[2019-03-02] MEDS: NORVASC PO SCH (09:45)
[2019-03-02] MEDS: ALDACTONE PO SCH (09:46)
[2019-03-02] MEDS: EFFEXOR PO SCH (09:55)
--- NOTE | 2019-03-03 03:34 | DISCHARGE SUMMARY ---
ADMISSION DATE: 02/28/2019 DISCHARGE DATE: 03/02/2019 DISCHARGE DIAGNOSES: 1. Acute on chronic systolic heart failure. 2. Constipation. 3. Hypertension. 4. Diabetes mellitus type 2. 5. Tobacco abuse. PROCEDURES: 1. Echocardiogram Doppler show the left ventricular chamber markedly dilated with global systolic function severely impaired, estimated in the range of 20 to 25 percent. No pericardial effusion. No mass or thrombosis. There is also mild to moderate tricuspid regurgitation. The left atrium is markedly dilated. 2. Chest x-ray done the day before yesterday showed cardiomegaly but no pleural effusion. HOSPITAL COURSE: This is a 38-year-old male, with past medical history of CHF, who was started having increasing shortness of breath and also no bowel movements in a week, so patient decided to come to the emergency department. He was found to have CHF exacerbation. He claims that he was using his Lasix like he is supposed to, but he has not urinating as he used to do. We will start this patient on Lasix. His white cell count get elevated a little bit, but historically patient has been between 1.3 and 1.5 creatinine. He is feeling okay, walking around and not requiring any oxygen supplementation, so I think this patient can be discharged today in stable condition. We are going to check his furosemide to torsemide. PHYSICAL EXAMINATION: Vital Signs: Temperature 98.6 degrees, heart rate 70, respiratory 16, blood pressure 128/93, O2 saturation 100% on room air. General: This is a chronically ill- looking, 38-year-old male, lying in bed, in no acute distress. Cardiovascular: S1, S2 heard. No murmurs, gallops, or rubs. Regular rate and rhythm. Respiratory: Clear bilaterally to auscultation. No work of breathing or using accessory muscles. Abdomen: Soft, nontender to palpation. Bowel sounds present. No organomegaly. Extremities: No clubbing, cyanosis, or edema. Peripheral pulses present in both legs. Neurological: The patient is alert and oriented x3. Moves 4 extremities. DISCHARGE DISPOSITION: Home to self-care. DISCHARGE MEDICATIONS: 1. Demadex 20 mg, 1 tablet p.o. daily. 2. Lactulose 30 mL twice daily as needed for constipation. 3. Lisinopril/hydrochlorothiazide 20/12.5, one tablet p.o. daily. 4. Losartan 100 mg, 1 tablet p.o. daily. 5. Metoprolol 50 mg, 1 tablet p.o. b.i.d. 6. Pantoprazole 40 mg, 1 tablet p.o. daily. 7. Potassium chloride 20 mEq p.o. daily. 8. Spironolactone 25 mg, 1 tablet p.o. daily. 9. Albuterol as needed for shortness of breath. 10. Metformin 500 mg, 1 tablet p.o. daily. 11. Entresto 24 mg/26 mg, 1 tablet p.o. twice daily. 12. Celexa 40 mg, 1 tablet p.o. daily. 13. Amlodipine 5 mg, 1 tablet p.o. daily. 14. Pulmicort Flexhaler every 4 hours for shortness of breath. 15. Singulair 10 mg, 1 tablet p.o. daily. 16. Percocet 5 mg, 1 tablet p.o. every 4 hours as needed. 17. Venlafaxine 50 mg, 1 tablet p.o. daily. 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 DISCHARGE TIME: 33 minutes. cc: Brad Hutson MD
== END 2019-03-02 10:41 | disposition home or self-care (01) | DRG 293 ==
LOC: P.ED 09:32 → P.MEDSURG 10:55
PROVIDERS: ATTEND Internal Medicine